=== PATIENT | male | born 1995 | race Caucasian/White ===

== ENCOUNTER 2020-05-17 09:26 | Emergency (ER) | payer OTHER ==
[~2020-05-17] VITALS: Ht 177.8 cm; Wt 88.5 kg
[2020-05-17 09:54] LABS: ABSOLUTE NEUTROPHILS 7.5 thou/uL (1.4-8.2); BASOPHILS 0.6 % (0.0-2.0); EOSINOPHILS 6.4 % (0.0-3.0); HEMATOCRIT 46.5 % (42.0-52.0); LYMPHOCYTES 12.9 % (24.0-44.0); MCH 28.7 pg (26.0-34.0); MCHC 34.3 g/dL (28.0-37.0); MCV 83.5 fL (80.0-100.0); MONOCYTES 7.8 % (1.0-8.0); PLATELET COUNT 206 thou/uL (150-400); POLYS 72.3 % (36.0-66.0); RBC 5.56 mil/uL (4.50-6.00); WBC 10.4 thou/uL (4.0-11.0)
[2020-05-17 10:07] LABS: CALCIUM 8.8 mg/dL (8.5-10.1); CREATININE 0.9 mg/dL (0.7-1.3); POTASSIUM 4.3 mmol/L (3.5-5.1)
[2020-05-17 10:12] LABS: ALBUMIN 4.1 g/dL (3.4-5.0); TOTAL BILIRUBIN 0.4 mg/dL (0.2-1.0); TOTAL PROTEIN 8.2 g/dL (6.4-8.2)
[2020-05-17] MEDS ORDERED: ZOFRAN ODT4 MG PO (11:30)
[2020-05-17 12:00] VITALS: BP 106/64
--- NOTE | 2020-05-18 09:29 | EKG ---
[facility] [place] [address] ELECTROCARDIOGRAM REPORT Name: TERESITA KINNEY Room #: DEP 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1995 Requested By: Chandni Gambino Order Number: [id number] MD: Paul Trevizo Measurements Intervals [place] Rate: 57 P: 36 [place]: 146 QRS: -16 QRSD: 99 T: 4 QT: 394 QTc: 384 Interpretive Statements Sinus rhythm Borderline left axis deviation Low voltage, precordial leads RSR' in V1 or V2, probably normal variant No previous ECG available for comparison Electronically Signed On 05-18-2020 9:29:01 CDT by Paul Trevizo [email or web address] <ELECTRONICALLY SIGNED> By: Paul Trevizo MD, FACC 05/18/20 0929 1008 1008 Paul Trevizo MD, [facility] /EPI
== END 2020-05-17 12:00 | disposition home or self-care (01) ==
LOC: ER 09:26
PROVIDERS: Emergency Medicine
DX: R11.2 Nausea with vomiting, unspecified (principal); R10.13 Epigastric pain; M54.9 Dorsalgia, unspecified

== ENCOUNTER 2021-05-13 15:57 | Emergency (ER) | payer OTHER ==
[~2021-05-13] VITALS: Ht 175.3 cm; Wt 88.5 kg
[~2021-05-13 15:57] MED LIST: ZOFRAN ODT4 MG PO
[2021-05-13 16:37] LABS: ABSOLUTE NEUTROPHILS 5.8 thou/uL (1.4-8.2); BASOPHILS 0.6 % (0.0-2.0); EOSINOPHILS 7.4 % (0.0-3.0); HEMATOCRIT 49.6 % (42.0-52.0); HEMOGLOBIN 16.7 gm/dL (14.0-18.0); LYMPHOCYTES 18.5 % (24.0-44.0); MCH 28.4 pg (26.0-34.0); MCHC 33.8 g/dL (28.0-37.0); MCV 84.2 fL (80.0-100.0); MONOCYTES 8.7 % (1.0-8.0); PLATELET COUNT 213 thou/uL (150-400); POLYS 64.8 % (36.0-66.0); RBC 5.88 mil/uL (4.50-6.00); WBC 8.9 thou/uL (4.0-11.0)
[2021-05-13 16:40] LABS: CALCIUM 9.1 mg/dL (8.5-10.1); POTASSIUM 4.1 mmol/L (3.5-5.1)
[2021-05-13 16:44] LABS: APTT 30.4 Seconds (24.5-32.8); INR 0.94; PROTIME 10.3 Seconds (10.5-12.1)
[2021-05-13 16:50] LABS: ALBUMIN 4.1 g/dL (3.4-5.0); TOTAL BILIRUBIN 0.4 mg/dL (0.2-1.0); TOTAL PROTEIN 8.2 g/dL (6.4-8.2)
[2021-05-13 18:38] VITALS: BP 113/62
--- NOTE | 2021-05-15 08:14 | EKG ---
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
== END 2021-05-13 18:38 | disposition home or self-care (01) ==
LOC: ER 15:57
PROVIDERS: Emergency Medicine
DX: H53.9 Unspecified visual disturbance (principal); Z20.822 Contact with and (suspected) exposure to COVID-19; R20.0 Anesthesia of skin; R26.81 Unsteadiness on feet

== ENCOUNTER → 2021-05-14 | Outpatient (CLI) | payer OTHER ==
--- NOTE | 2021-05-31 05:39 | EEG ---
[facility] [place] [address] ELECTROENCEPHALOGRAM Name: TERESITA KINNEYIOTT Room #: REG LOR[facility] GibsonJakubBenitoJakub#: [id number] Admission: 05/14/21 Attend Phys: Azael Mason MD Discharge: Date of : [birth year] Report #: [id number] THIS REPORT FOR: //name// DATE OF SERVICE: 05/15/2021 The patient is being evaluated for the possibility of seizure. EEG was done by placing the electrode by standard 10-20 system of electrode placement. Both referential and sequential montages were used for recording. Background activity in this patient's EEG is about 10 Hz and 30 microvolt. It is symmetrical activity. Photic stimulation is unremarkable. Large portion of this EEG was obtained when the patient was asleep and that is associated with bilaterally symmetrical sleep spindle and vertex sharp waves. Throughout the record, no active epileptiform activity was noticed. IMPRESSION: This patient's EEG is within normal limits. Thank you very much for this referral. <ELECTRONICALLY SIGNED> By: Dante Jones MD 05/31/21 0539 1136 1211 Dante Jones MD /nt
== END ==
LOC: MRI 14:10
PROVIDERS: ATTEND Hospitalist
DX: J32.4 Chronic pansinusitis (principal); J34.89 Other specified disorders of nose and nasal sinuses